=== PATIENT | female | born 1965 | race Caucasian/White ===

== ENCOUNTER 2020-05-11 16:37 | Emergency (ER) | payer MEDICARE, SELFPAY ==
[2020-05-11 16:48] VITALS: BP 131/86; PULSE 103; RESP 18; TEMP 36.9; O2SAT 100
--- NOTE | 2020-05-11 17:08 | ED.GENADULT ---
HPI - General Adult General Chief complaint: Upper Respiratory Infection Stated complaint: mouth sores, sore throat and ears Time Seen by Provider: 05/11/20 16:44 Source: patient Mode of arrival: ambulatory Limitations: no limitations History of Present Illness HPI narrative: 54 y/o female. PMH includes: GERD, DM II, Fibromyalgia, RA, OA. Presents to the [facility] today with acute complaints of tongue irritation and sores since [place] . She also notes mild sore throat. Client states to have contacted her Continuity Manager, who recommended she seek out further medical evaluation. She denies fever. No associated rash. Denies joint pain (worsening from RA baseline). No significant fatigue. No dyspnea, dysphagia, or involuntary drooling. No edema. No additional acute c/o upon PE. Related Data Home Medications Medication Instructions Recorded Confirmed celecoxib [Celebrex] 200 mg PO BID 05/11/20 05/11/20 duloxetine 60 mg PO DAILY 05/11/20 05/11/20 hydroxychloroquine 200 mg PO BID 05/11/20 05/11/20 imipramine HCl 25 mg PO HS 05/11/20 05/11/20 metformin 500 mg PO BID 05/11/20 05/11/20 omeprazole 40 mg PO BID 05/11/20 05/11/20 rosuvastatin 20 mg PO DAILY 05/11/20 05/11/20 sulfasalazine 0.5 g PO BID 05/11/20 05/11/20 tramadol 50 mg PO Q6H 05/11/20 05/11/20 Allergies Allergy/AdvReac Type Severity Reaction Status Date / Time Penicillins Allergy Rash Verified 05/11/20 16:58 Review of Systems Review of Systems: Narrative: CONSTITUTIONAL: Denies fever, chills, sweats. EYES: Denies visual changes, redness, discharge. ENT: Denies rhinorrhea, congestion, otalgia. Sores in mouth, sore throat. CARDIOVASCULAR: Denies chest pain, palpitations, edema. RESPIRATORY: Denies dyspnea, wheezing, cough GASTROINTESTINAL: Denies abdominal pain, nausea, vomiting, diarrhea. GENITOURINARY: Denies dysuria, hematuria, abnormal discharge SKIN: Denies rash or itching. MUSCULOSKELETAL: Denies acute back pain, joint pain, or myalgia. NEUROLOGIC: Denies numbness, or focal weakness. PSYCHIATRIC: Denies anxiety or depression. All systems reviewed & are unremarkable except as noted in HPI and below (HPI. ) PMFSH Comments At the time of my signature I agree with nursing past medical history, surgical, social, and family history. There is no relevant family history pertinent to the presenting complaint. Exam Narrative: Exam Narrative: GENERAL: This is a well-nourished, well-developed patient, in no apparent distress. HEAD: normocephalic, atraumatic. EYES: PERRL. Sclera clear/white. Vision is grossly intact. EARS: External ears normal, auditory canals clear and without drainage, TMs normal without perforation. Hearing grossly intact. NOSE: External nose normal with no obvious nasal discharge, nares without redness, no rhinorrhea. THROAT: Mucous membranes moist, posterior pharynx clear. With small scattered white confluent plaques. No erythema or bleeding base. No haloing. No open areas or wounds. No oropharyngeal swelling. NECK: Neck supple, non-tender without lymphadenopathy, masses or thyromegaly. CARDIOVASCULAR: Regular rate and rhythm without murmurs, gallops, or rubs. No edema. RESPIRATORY: Clear to auscultation. Breath sounds equal bilaterally. No wheezes, rales, or rhonchi. GASTROINTESTINAL: Abdomen soft, non-tender, nondistended. Bowel sounds are active. No hepato-splenomegaly, or palpable masses. No guarding. SKIN: warm, intact with no suspicious lesions or rash, good texture and turgor. NEURO: awake, alert, and oriented to person, place and time. There were no obvious focal neurologic abnormalities. Steady gait EXTREMITIES: Normal range of motion. No edema. No suspect point tenderness. BACK: Nontender without deformity or crepitance. No flank tenderness. Const: General: no acute distress Orientation/consciousness: patient oriented x3 Course Course Emergency Course: Clinical exam findings and recommendations reviewed with curtis
== END 2020-05-11 17:31 | disposition home or self-care (01) ==
PROVIDERS: Emergency Provider Nurse Practitioner Adult Health; PCP Family Medicine
DX: B37.0 Candidal stomatitis (principal); K21.9 Gastro-esophageal reflux disease without esophagitis; E11.9 Type 2 diabetes mellitus without complications; M79.7 Fibromyalgia; M06.9 Rheumatoid arthritis, unspecified
CPT/HCPCS: 87081; 87880; 99213; G0463